=== PATIENT | male | born 1985 | race American Indian/Alaskan Native ===

== ENCOUNTER 2016-10-28 12:53 | Emergency (ER) | payer SELFPAY ==
[2016-10-28 13:09] VITALS: BP 135/80
--- NOTE | 2016-10-28 14:10 | XRay Report ---
LEFT KNEE: History: Pain after trauma. Findings: The bony architecture is intact without evidence of fracture or dislocation. No significant soft tissue abnormality is seen. IMPRESSION: Normal left knee.
--- NOTE | 2016-10-28 15:08 | Emergency Department Report ---
ED Extremity Problem HPI - General Chief complaint: Extremity Injury, Lower Stated complaint: KNEE/HUNTER PAIN Time Seen by Provider: 10/28/16 14:58 Source: patient Mode of arrival: Ambulatory Limitations: No Limitations - History of Present Illness Initial comments: PT states he twisted his L knee when he was jumping over [place] and landed wrong. PT states injury occurred 10-10-16. PT states he thought the pain would improve but his pain changed from a dull ache to a throbbing. pt rates his pain /10 and states pain improves with ambulation. PT states he has take an old RX of Naprosyn for the pain MD Complaint: joint paint -: Sudden, week(s) Location: left, lower extremity, knee History of Same: Yes (knee injury in high school ) Severity scale (0 -10): 7 Consistency: constant Improves with: movement Worsens with: rest Associated Symptoms: denies other symptoms. denies: chest pain, shortness of breath - Related Data Previous Rx's Medication Instructions Recorded Last Taken Type Acetaminophen/Codeine [Tylenol #3] 1 tab PO Q6H PRN #8 tab 10/28/16 Unknown Rx Allergies Allergy/AdvReac Type Severity Reaction Status Date / Time guaifenesin [From Robitussin] Allergy Hives Verified 10/28/16 13:09 ED Review of Systems ROS: Stated complaint: KNEE/HUNTER PAIN Other details as noted in HPI Comment: All other systems reviewed and negative Constitutional: denies: chills, fever Gastrointestinal: denies: abdominal pain, nausea, vomiting Musculoskeletal: as per HPI Skin: change in color (knee was bruised ) ED Past Medical Hx - Past Medical History Previous Medical History?: Yes Hx Psychiatric Treatment: Yes (SCHIZOPHRENIA) - Surgical History Past Surgical History?: No - Social History Smoking Status: Current Every Day Smoker Substance Use Type: Alcohol - Medications Home Medications: Home Medications Medication Instructions Recorded Confirmed Last Taken Type Acetaminophen/Codeine [Tylenol #3] 1 tab PO Q6H PRN #8 tab 10/28/16 Unknown Rx ED Physical Exam - General Limitations: No Limitations General appearance: alert, in no apparent distress - Head Head exam: Present: atraumatic, normocephalic, normal inspection - Eye Eye exam: Present: normal appearance. Absent: conjunctival injection - ENT ENT exam: Present: normal exam, normal external ear exam - Neck Neck exam: Present: normal inspection, full ROM. Absent: tenderness - Respiratory Respiratory exam: Present: normal lung sounds bilaterally. Absent: respiratory distress, chest wall tenderness - Cardiovascular Cardiovascular Exam: Present: regular rate, normal rhythm, normal heart sounds - Extremities Exam Extremities exam: Present: normal inspection, full ROM, tenderness. Absent: pedal edema, joint swelling, calf tenderness - Expanded Lower Extremity Exam Right Knee exam: Present: normal inspection, full ROM. Absent: tenderness Lower Leg exam: Present: normal inspection, full ROM. Absent: tenderness Ankle exam: Present: normal inspection, full ROM. Absent: tenderness Foot/Toe exam: Present: normal inspection, full ROM. Absent: tenderness Neuro vascular tendon exam: Present: no vascular compromise Gait: Positive: observed and limited by pain Left Knee exam: Present: normal inspection, tenderness. Absent: full ROM, swelling, ecchymosis, deformity, full knee extension Lower Leg exam: Present: normal inspection, tenderness (to mid tib/ fib ). Absent: swelling, abrasion, ecchymosis Ankle exam: Present: normal inspection, full ROM. Absent: tenderness, swelling Foot/Toe exam: Present: full ROM. Absent: tenderness Neuro vascular tendon exam: Present: no vascular compromise. Absent: pulse deficit - Back Exam Back exam: Present: normal inspection, full ROM - Neurological Exam Neurological exam: Present: alert, oriented X3 - Psychiatric Psychiatric exam: Present: normal affect, normal mood - Skin Skin exam: Present: warm, dry, intact, normal color ED Course Vital Signs 10/28/16 13:06 Temperature 98 F Pulse Rate 70 Blood Pressure 135/80 O2 Sat by Pulse 100 Oximetry - Reevaluation(s) Reevaluation #1: 10/28/16 15:14 PT aware of plan of care. PT has no questions at this time. Reevaluation #2: 10/28/16 16:39 PT aware of tib/ fib xr result. PT placed in L knee immobilizer by nursing staff. PT nvi - Pulse Oximetry Interpretation Digit-Finger Initial Pulse Oximetry Readin Actions Taken: none ED Medical Decision Making - Radiology Data Radiology results: report reviewed XR L knee - nap XR L tib/ fib - nap - Differential Diagnosis fracture, contusion Critical Care Time: No Critical care attestation.: If time is entered above; I have spent that time in minutes in the direct care of this critically ill patient, excluding procedure time. ED Disposition Clinical Impression: Left leg pain Left knee injury Qualifiers: Encounter type: initial encounter Qualified Code(s): S89.92XA - Unspecified injury of left lower leg, initial encounter Disposition: TO HOME OR SELFCARE Is pt being admited?: No Does the pt Need Aspirin: No Condition: Stable Instructions: Knee Sprain (ED), Crutch Instructions (ED), Knee Pain (ED), RICE Therapy (ED) Additional Instructions: No driving or alcohol after taking Tylenol #3 Continue taking your Naprosyn Prescriptions: Acetaminophen/Codeine [Tylenol #3] 1 tab PO Q6H PRN #8 tab PRN Reason: Pain , Severe (7-10) Referrals: PRIMARY CARE, [Primary Care Provider] - 3-5 Days RACHEL WEIR MD [Staff Physician] - 3-5 Days Time of Disposition: 16:16
--- NOTE | 2016-10-28 16:00 | XRay Report ---
LEFT TIBIA/FIBULA: History: Pain after trauma. AP and lateral views of the left tibia/fibula demonstrate normal mineralization and contours for this patient's age. No destructive changes are noted and the adjacent soft tissues are normal. IMPRESSION: Normal left tibia/fibula.
== END 2016-10-28 16:41 | disposition home or self-care (01) ==
LOC: ED 12:53
DX: S89.92XA Unspecified injury of left lower leg, initial encounter (principal); M79.605 Pain in left leg; F20.9 Schizophrenia, unspecified; F17.200 Nicotine dependence, unspecified, uncomplicated; Z88.8 Allergy status to other drugs, medicaments and biological substances; X50.1XXA Overexertion from prolonged static or awkward postures, initial encounter; Y93.89 Activity, other specified; Y99.9 Unspecified external cause status; Y92.89 Other specified places as the place of occurrence of the external cause